=== PATIENT | female | born 1980 | race Caucasian/White ===

== ENCOUNTER 2016-10-13 16:15 | Emergency (ER) | payer BC, OTHER ==
[2016-10-13 16:28] VITALS: BP 125/69; PULSE 60; TEMP 98.3; BMI 25.0
--- NOTE | 2016-10-13 16:29 | PDOC ---
Rapid Medical Evaluation Chief Complaint: Lightheaded Time Seen by Provider: 10/13/16 16:26 Medical Evaluation: Allergies Allergy/AdvReac Type Severity Reaction Status Date / Time No Known Allergies Allergy Verified 10/13/16 16:26 10/13/16 16:26 RME Note: I have performed a brief, in-person evaluation of this patient . This patient presents with CC: numbness both legs, apryl. to right leg x 5 days Pertinent PE findings are: nl ambulation, VSS I have ordered: nothing The patient will proceed to ED for further evaluation. JR
--- NOTE | 2016-10-13 18:05 | PDOC ---
[id number] is a 36 year old female, with no significant past medical history, who presents to the emergency department with numbness and tingling to her right lower leg and bilateral hands for 6 days. She states the right lower leg numbness and tingling radiates from her ankle to her knee, medially and has been constant. She states her bilateral hand numbness has been intermittent. She denies any weakness. The patient also states she feels lightheaded right now. She denies any other acute complaints. She denies chest pain, shortness of breath, headache and dizziness. She denies fever, chills, nausea, vomit, diarrhea and constipation. She denies dysuria, frequency, urgency and hematuria. Allergies: NKDA Past surgical history: cholecystectomy Social history: denies toxic habits PCP - Dr. Wolf <Padmini Thorpe - Last Filed: 10/13/16 18:29> <Lizbeth Delacruz - Last Filed: 10/14/16 02:21> - General Chief Complaint: Lightheaded Stated Complaint: LIGHTHEADED/NUMBNESS ON BOTH LEGS Time Seen by Provider: 10/13/16 16:26 Past History <Padmini Thorpe - Last Filed: 10/13/16 18:29> - Past Medical History Other medical history: none - Surgical History Cholecystectomy: Yes - Psycho/Social/Smoking Cessation Hx Anxiety: No Suicidal Ideation: No Smoking History: Never smoked Have you smoked in the past 12 months: No Information on smoking cessation initiated: No Hx Alcohol Use: No Drug/Substance Use Hx: No Substance Use Type: None <Lizbeth Delacruz - Last Filed: 10/14/16 02:21> - Past Medical History Allergies/Adverse Reactions: Allergies Allergy/AdvReac Type Severity Reaction Status Date / Time No Known Allergies Allergy Verified 10/13/16 16:26 Home Medications: Ambulatory Orders NK [No Known Home Medication] 10/13/16 Review of Systems - Review of Systems Able to Perform ROS?: Yes Comments:: 10/13/16 18:31 CONSTITUTIONAL: Absent: fever, chills, diaphoresis, generalized weakness, malaise, loss of appetite HEENT: Absent: rhinorrhea, nasal congestion, throat pain, throat swelling, difficulty swallowing, mouth swelling, ear pain, eye pain, visual Changes CARDIOVASCULAR: Absent: chest pain, syncope, palpitations, irregular heart rate, lightheadedness , peripheral edema RESPIRATORY: Absent: cough, shortness of breath, dyspnea with exertion, orthopnea, wheezing, stridor, hemoptysis GASTROINTESTINAL: Absent: abdominal pain, abdominal distension, nausea, vomiting, diarrhea, constipation, melena, hematochezia GENITOURINARY: Absent: dysuria, frequency, urgency, hesitancy, hematuria, flank pain, genital pain MUSCULOSKELETAL: Absent: myalgia, arthralgia, joint swelling SKIN: Absent: rash, itching, pallor HEMATOLOGIC/IMMUNOLOGIC: Absent: easy bleeding, easy bruising, lymphadenopathy, frequent infections ENDOCRINE: Absent: unexplained weight gain, unexplained weight loss, heat intolerance, cold intolerance NEUROLOGIC: (+) right lower extremity numbness ang tingling. bilateral hand numbness. Absent : headache, focal weakness. dizziness, unsteady gait, seizure, mental status changes, bladder or bowel incontinence PSYCHIATRIC: Absent: anxiety, depression, suicidal or homicidal ideation, hallucinations. <Padmini Thorpe - Last Filed: 10/13/16 18:29> *Physical Exam - Vital Signs Last Vital Signs Temp Pulse Resp BP Pulse Ox 98.3 F 60 18 125/69 100 10/13/16 16:26 10/13/16 16:26 10/13/16 16:26 10/13/16 16:26 10/13/16 16:26 - Physical Exam Comments: 10/13/16 18:34 GENERAL: Well developed, well nourished. Awake and alert. No acute distress. HEENT: Normocephalic, atraumatic. PERRLA, EOMI. No conjunctival pallor. Sclera are non- icteric. Moist mucous membranes. Oropharynx is clear. NECK: Supple. Full ROM. No JVD. Carotid pulses 2+ and symmetric, without bruits. No thyromegaly. No lymphadenopathy. CARDIOVASCULAR: Regular rate and rhythm. No murmurs, rubs, or gallops. Distal pulses are 2+ and symmetric. PULMONARY: No evidence of respiratory distress. Lungs clear to auscultation bilaterally. No wheezing, rales or rhonchi. ABDOMINAL: Soft. Non-tender. Non-distended. No rebound or guarding. No organomegaly. Normoactive bowel sounds. MUSCULOSKELETAL Normal range of motion at all joints. No bony deformities or tenderness. No CVA tenderness. EXTREMITIES: No cyanosis. No clubbing. No edema. No calf tenderness. SKIN: Warm and dry. Normal capillary refill. No rashes. No jaundice. NEUROLOGICAL: Alert, awake, appropriate. Cranial nerves 2-12 intact. Normoreflexic in the upper and lower extremities. Normal speech. Toes are down-going bilaterally. Gait is normal without ataxia. PSYCHIATRIC: Cooperative. Good eye contact. Appropriate mood and affect. <Padmini Thorpe - Last Filed: 10/13/16 18:29> - Vital Signs Last Vital Signs Temp Pulse Resp BP Pulse Ox 98.3 F 60 18 125/69 100 10/13/16 16:26 10/13/16 16:26 10/13/16 16:26 10/13/16 16:26 10/13/16 16:26 <Lizbeth Delacruz - Last Filed: 10/14/16 02:21> ED Treatment Course - LABORATORY CBC & Chemistry Diagram: 10/13/16 18:30 10/13/16 18:30 <Lizbeth Delacruz - Last Filed: 10/14/16 02:21> Medical Decision Making - Medical Decision Making 10/13/16 18:35 Dr. Wolf was paged at 18:19 requesting a callback for doctor to doctor consult. Dr. Wolf returned the call at 18:21 and the patient's case was discussed. Dr. Wolf states he will call the patient tomorrow and move her appointment from next to a sooner date. <Padmini Thorpe - Last Filed: 10/13/16 18:29> - Medical Decision Making 10/14/16 02:14 36 yo female p/w intermittent tingling and numbness to her lower shins and fingers since last Thu -she states that after leaving the gym last Thu she developed these symptoms. -she denies any trauma or back pain,no saddle anesthesia,no bladder or bowel incontinence -shehasno ataxia -she has 5/5 strength bilaterally -she has not had any diplopia or visual changes -her NIHSS is essentially zero ,there is some subjective decreased sensation to her rt anterior awad -labs unremarkable -neg preg test I spoke to her primary physician Dr Wolf and she will see her in the office this week and arrange for neurology follow up <Lizbeth Delacruz - Last Filed: 10/14/16 02:21> *DC/Admit/Observation/Transfer - Attestations Scribe Attestion: 10/13/16 18:35 Documentation prepared by Padmini Thorpe, acting as medical driver for Lizbeth Delacruz MD <Padmini Thorpe - Last Filed: 10/13/16 18:29> <Lizbeth Delacruz - Last Filed: 10/14/16 02:21> Diagnosis at time of Disposition: Peripheral neuropathy Qualifiers: Peripheral neuropathy type: polyneuropathy, unspecified Qualified Code(s): G62.9 - Polyneuropathy, unspecified - Discharge Dispostion Disposition: HOME Condition at time of disposition: Stable - Referrals Referrals: Kelsey Wolf MD [Primary Care Provider] - - Patient Instructions Printed Discharge Instructions: DI for Numbness/tingling Additional Instructions: Contact Dr Wolf office tomorrow for follow up Return if you have any worsening symptoms
[2016-10-13 18:42] LABS: BASOPHIL 0.8 % (0-2.0); EOSINOPHIL 0.5 % (0-4.5); MCH 32.7 pg (25.7-33.7); MCHC 33.8 g/dl (32.0-36.0); MEAN CELL VOLUME 96.7 fl (80-96); MEAN PLT VOLUME 7.7 fl (7.5-11.1); NEUTROPHILS 60.4 % (42.8-82.8); PLATELET COUNT 271 K/MM3 (134-434); RDW 13.2 % (11.6-15.6); WHITE BLOOD COUNT 7.9 K/mm3 (4.0-10.0)
[2016-10-13 18:43] LABS: URINE APPEARANCE CLEAR; URINE BILIRUBIN NEGATIVE (NEGATIVE); URINE COLOR YELLOW; URINE GLUCOSE (UA) NEGATIVE (NEGATIVE); URINE KETONE NEGATIVE (NEGATIVE); URINE NITRITE NEGATIVE (NEGATIVE); URINE PROTEIN NEGATIVE (NEGATIVE); URINE UROBILINOGEN NEGATIVE E.U./dl (0.2-1.0)
[2016-10-13 18:44] LABS: URINE BLOOD 2+ (NEGATIVE); URINE LEUK ESTERASE 1+ (NEGATIVE)
[2016-10-13 18:46] LABS: URINE BACTERIA RARE /hpf (NONE SEEN); URINE MUCUS RARE; URINE RBC 1 /hpf (0-3); URINE WBC 7 /hpf (3-5)
[2016-10-13 19:13] LABS: ALBUMIN 3.8 g/dl (3.4-5.0); ALK PHOS 83 U/L (45-117); ANION GAP 9 (8-16); BILIRUBIN,TOTAL 0.4 mg/dL (0.2-1.0); CALCIUM 8.9 mg/dL (8.5-10.1); CO2 25 mmol/L (21-32); CREATININE 0.8 mg/dL (0.55-1.02); GLUCOSE,RANDOM 91 mg/dL (74-106); SGOT/AST 23 U/L (15-37); SGPT/ALT 51 U/L (12-78); TOT PROT 7.5 g/dl (6.4-8.2)
== END 2016-10-13 20:01 | disposition home or self-care (01) ==
LOC: JER 16:15
DX: G62.89 Other specified polyneuropathies (principal)
CPT/HCPCS: 36415; 80053; 81003; 81015; 84703; 85025; 99282-25